=== PATIENT | male | born 1990 | race Caucasian/White ===

== ENCOUNTER 2016-12-14 13:49 | Emergency (ER) | payer OTHER ==
[~2016-12-14] VITALS: Ht 185.4 cm; Wt 73.8 kg
[~2016-12-14 13:49] MED LIST: BENTYL10 MG PO; ZITHROMAX Z-PA250 MG PO; ZOFRAN ODT4 MG PO
[2016-12-14 14:50] LABS: HEMATOCRIT 46.4 % (38.0-50.0); MCH 30.7 PG (29.0-34.0); MCHC 34.1 G/DL (30.0-36.0); MCV 90.1 FL (86-99); MEAN PLAT.VOLUME 9.8 uM^3 (9.0-12.4); PLATELET COUNT 230 K/uL (156-360); RBC DIS.WIDTH-CV 11.9 % (11.8-14.6); RED BLOOD COUNT 5.15 M/uL (4.00-5.50)
[2016-12-14 14:52] LABS: ADD MIUA? NO; BILIRUBIN NEGATIVE; BLOOD NEGATIVE; COLOR YELLOW ((YELLOW)); GLUCOSE (STRIP) NEGATIVE; KETONES NEGATIVE; LEUKOCYTES NEGATIVE; NITRITE NEGATIVE; PROTEIN (STRIP) 30; SPECIFIC GRAVITY 1.011 (1.000-1.030); UCUL ADDED? NO; UROBILINOGEN 0.2 MG/DL (0.2-1.0)
[2016-12-14 15:06] LABS: AMYLASE 59 IU/L (1-118); CHLORIDE 106 mEq/L (99-109); POTASSIUM 3.9 mEq/L (3.7-5.4); SODIUM 141 mEq/L (136-147)
[2016-12-14 15:08] LABS: GLUCOSE 103 mg/dL (70-99)
[2016-12-14 15:10] LABS: ANION GAP 9 MEQ/L (2-14)
[2016-12-14 15:12] LABS: GFR ESTIMATE (CALCULATED) > 59 mL/min/
[2016-12-14 15:13] LABS: UREA NITROGEN (BUN) 14 mg/dL (9-23)
[2016-12-14 15:15] LABS: LIPASE 13 U/L (1.0-51.0)
[2016-12-14] MEDS ORDERED: PERCOCET 5/31 TABLET PO (15:52)
[2016-12-14 16:05] VITALS: BP 120/69
== END 2016-12-14 16:06 | disposition home or self-care (01) ==
LOC: EME 13:49
DX: R10.9 Unspecified abdominal pain (principal); R35.0 Frequency of micturition; J45.909 Unspecified asthma, uncomplicated; F17.200 Nicotine dependence, unspecified, uncomplicated
CPT/HCPCS: 74000; 80048; 81003; 82150; 83690; 85027; 99281; 99284

== ENCOUNTER 2017-01-13 23:58 | Emergency (ER) | payer OTHER ==
[~2017-01-13] VITALS: Ht 185.4 cm; Wt 72.3 kg
[~2017-01-13 23:58] MED LIST changes: +PERCOCET 5/31 TABLET PO
[2017-01-14] MEDS ORDERED: MOTRIN600 MG PO (01:19)
[2017-01-14] MEDS ORDERED: PERCOCET 5/31 TABLET PO (01:19)
[2017-01-14 01:33] VITALS: BP 110/94
== END 2017-01-14 01:34 | disposition home or self-care (01) ==
LOC: EME 23:58
PROC: 2W3FX1Z Immobilization of Left Hand using Splint (ICD-10-PCS; principal; 2017-01-13)
DX: S62.327A Displaced fracture of shaft of fifth metacarpal bone, left hand, initial encounter for closed fracture (principal); W22.09XA Striking against other stationary object, initial encounter
CPT/HCPCS: 73130; 99281; 99284

== ENCOUNTER 2018-03-23 15:20 | Emergency (ER) | payer OTHER ==
[~2018-03-23] VITALS: Ht 185.4 cm; Wt 72.2 kg
[~2018-03-23 15:20] MED LIST changes: +MOTRIN600 MG PO
[2018-03-23] MEDS ORDERED: MEDROL DOSEPAK4 MG PO (16:31)
[2018-03-23] MEDS ORDERED: KEFLEX500 MG PO (16:31)
[2018-03-23 17:00] VITALS: BP 118/88
== END 2018-03-23 17:02 | disposition home or self-care (01) ==
LOC: EME 15:20
DX: L23.7 Allergic contact dermatitis due to plants, except food (principal); Z77.098 Contact with and (suspected) exposure to other hazardous, chiefly nonmedicinal, chemicals; J45.909 Unspecified asthma, uncomplicated; Z87.891 Personal history of nicotine dependence; Z88.0 Allergy status to penicillin
CPT/HCPCS: 99281; 99284